=== PATIENT | male | born 1955 | race Caucasian/White ===

== ENCOUNTER 2016-08-11 18:19 | Inpatient (IN) | payer OTHER ==
[~2016-08-11] VITALS: Ht 170.2 cm; Wt 104.9 kg
--- NOTE | 2016-08-11 19:52 | DIAGNOSTIC IMAGING REPORT ---
PROCEDURE: CT HEAD WITHOUT CONTRAST INDICATION: Ground level fall injury, initial encounter TECHNIQUE: Noncontrast axial images with sagittal and coronal reformations. COMPARISON: None. FINDINGS: Mild cortical atrophy and minor white matter chronic ischemic changes. Normal ventricular system. No evidence of acute intracranial process. Visualized mastoids and sinuses are clear. IMPRESSION: 1. No acute intracranial abnormality 2. Mild atrophy and minor white matter chronic ischemic changes 3. Findings discussed with Dr. Li at 07:53 p.m., [place] Standard Time
--- NOTE | 2016-08-11 19:59 | DIAGNOSTIC IMAGING REPORT ---
PROCEDURE: CT CERVICAL SPINE W/O CONTRAST CLINICAL INDICATION: Ground level fall, initial encounter TECHNIQUE: Noncontrast axial images with sagittal and coronal reformations. COMPARISON: None. FINDINGS: Normal alignment without fracture. Severe degenerative changes. Mild spinal stenosis at the C4-5, C5-6 and C6-7. Paraspinal soft tissues are normal IMPRESSION: 1. No acute changes 2. Severe degenerative changes 3. Results discussed with Dr. Li All CT scans at this facility use dose modulation, iterative reconstruction, and/or weight-based dosing when appropriate to reduce radiation dose to as low as reasonably achievable.
--- NOTE | 2016-08-11 20:23 | DIAGNOSTIC IMAGING REPORT ---
PROCEDURE: XR SHOULDER 2 OR MORE VW-RIGHT INDICATION: TRAUMA/INJURY, initial encounter TECHNIQUE: Three views. COMPARISON: None. FINDINGS: Comminuted fracture of the humeral head with extension to the humeral neck and mild displacement. No dislocation. Moderate AC joint degenerative changes. IMPRESSION: 1. Comminuted right humeral head fracture with mild displacement
--- NOTE | 2016-08-11 20:26 | DIAGNOSTIC IMAGING REPORT ---
PROCEDURE: XR SACRUM AND COCCYX INDICATION: TRAUMA/INJURY, initial encounter TECHNIQUE: Three views. COMPARISON: None. FINDINGS: Osseous structures are normal. No evidence of fracture. IMPRESSION: 1. Normal sacrum and coccyx.
--- NOTE | 2016-08-11 20:29 | DIAGNOSTIC IMAGING REPORT ---
PROCEDURE: XR HAND 3 OR 4 VIEWS - LEFT INDICATION: TRAUMA/INJURY, initial encounter TECHNIQUE: Four views. COMPARISON: None. FINDINGS: Osteopenia. No acute fracture or dislocation. Single screw through the third proximal phalanx. Multiple retention surgical wires overlie the fourth proximal phalanx. DIP degenerative changes. IMPRESSION: 1. No acute changes 2. Old postsurgical changes of the left third and fourth proximal phalanges 3. Severe osteopenia 4. Osteoarthritic changes
--- NOTE | 2016-08-11 22:23 | Progress Note ---
Subjective General Fx right shoulder, liver cirrhosis, ESRD. Admitted for eval and possible TSA. Full report dictated.
--- NOTE | 2016-08-11 22:23 | Progress Note ---
Subjective General Fx right shoulder, liver cirrhosis, ESRD. Admitted for eval and possible TSA. Full report dictated.
--- NOTE | 2016-08-11 23:58 | DIAGNOSTIC IMAGING REPORT ---
PROCEDURE: XR PELVIS 1 OR 2 VIEWS INDICATION: Pain post fall TECHNIQUE: AP view. COMPARISON: None. FINDINGS: Osseous structures are normal. IMPRESSION: 1. Normal pelvis.
--- NOTE | 2016-08-11 23:58 | DIAGNOSTIC IMAGING REPORT ---
PROCEDURE: XR PELVIS 1 OR 2 VIEWS INDICATION: Pain post fall TECHNIQUE: AP view. COMPARISON: None. FINDINGS: Osseous structures are normal. IMPRESSION: 1. Normal pelvis.
--- NOTE | 2016-08-11 23:59 | DIAGNOSTIC IMAGING REPORT ---
PROCEDURE: XR LUMBAR SPINE 2 OR 3 VIEWS INDICATION: Pain post fall TECHNIQUE: Three views. COMPARISON: None. FINDINGS: Mild dextroscoliosis may be in part due to positional changes. There are moderate degenerative changes of the lower lumbar facet joints. There is mild disc space narrowing at L3-4. Osseous structures and disc spaces are normal. No evidence of an acute process or fracture. Findings suggest multiple calcified gallstones. IMPRESSION: 1. Mild to moderate degenerative changes of the lumbar spine. 2. Otherwise negative lumbar spine. 3. Probable gallstones.
--- NOTE | 2016-08-12 00:08 | DIAGNOSTIC IMAGING REPORT ---
PROCEDURE: CT UPPER EXT W/O CONT - RIGHT CLINICAL INDICATION: TRAUMA/INJURY TECHNIQUE: Thin-cut noncontrast axial images with sagittal and coronal reformations. COMPARISON: Compare radiographs of the right shoulder earlier in the day (08/11/1969). FINDINGS: There is a comminuted fracture of the surgical neck of the right humerus with mild splaying of fracture fragments. There is mild ventral angulation and dorsal impaction. There is no evidence of dislocation. There are mild degenerative and/or post-traumatic changes of the right clavicle with mild arthritic change right acromioclavicular joint. There are mild degenerative right glenohumeral joint. IMPRESSION: 1. Mildly impacted and minimally angulated comminuted fracture of the surgical neck of the right humerus. All CT scans at this facility use dose modulation, iterative reconstruction, and/or weight-based dosing when appropriate to reduce radiation dose to as low as reasonably achievable.
--- NOTE | 2016-08-12 00:30 | ED CLINICAL REPORT ---
Clinical Report - Physicians/Mid Levels [facility] [address] [place] [address] 08/11/2016 18:20 Patient: QUYNH FIGUEROA Time Seen: 18:38. Arrived- By private vehicle. Historian- patient. HISTORY OF PRESENT ILLNESS Location of injuries- head, lower back and right shoulder. Chief Complaint: FALL. The injury occurred just prior to arrival. Fell while standing; slipped. Occurred at home. The patient complains of severe pain. The patient sustained a blow to the head. No neck pain or loss of consciousness. REVIEW OF SYSTEMS All systems otherwise negative, except as recorded above. PAST HISTORY PCP - Matthias. Problems: Hearing Loss. Cirrhosis. Medications: Lactulose 10 gm/15 ml bid. Flic acid 1 mg daily. Metronidazole 250 mg tid. Amiloride HCL 10 mg q.a.m., 5 mg noon. Mgnesium oxide 400 mg BID. Furosemide 40 mg a.m., 20 mg pm. Potassium chloride 7.5 daily. None. Allergies: Ibuprofen. SOCIAL HISTORY Alcohol use. Patient is a recovering alcoholic. (last drink 6 years ago). Residence: Near [place] he lives alone. FAMILY HISTORY Heart disease in first-degree relative (sibling). ADDITIONAL NOTES The nursing notes have been reviewed. PHYSICAL EXAM Vital Signs: 08/11/2016 18:31 BP: 132/65. HR: 82. RR: 18. O2 saturation: 94%. Temp: 97.8 F. Pain level now: 8/10. Have been reviewed. Appearance: Patient on a backboard. C-collar in place. Alert. Head: No Ambriz's sign or raccoon eyes. Eyes: Pupils equal, round and reactive to light. EOM intact. ENT: Pharynx normal. Neck: No decreased ROM or muscle spasm in the neck. No pain with movement of head/neck. No vertebral tenderness. CVS: Heart sounds normal. Pulses normal. Respiratory: Breath sounds normal. Chest nontender. Abdomen: No visible injury. Soft and nontender. Bowel sounds normal. Back: No tenderness. ROM normal. Skin: Skin intact. Skin warm and dry. Normal skin color. Normal skin turgor. Extremities: (tender to the right humeral head. no crepitus. no corrie abnormalities. slight amount of swelling. appears symmetrical to contralateral side. no overlying skin changes. compartments soft. no AC joint tenderness. No cavicular tenderness. no chest wall tenderness. back and neck are atraumatic and non-tender. no step offs.). Neuro: [place] Coma Scale: 15- eyes open spontaneously (4); best verbal response- oriented x 3 (5); best motor response- obeys commands (6). Oriented X 3. No alteration in mental status. No motor deficit. No sensory deficit. LABS, X-RAYS, AND EKG EKG: No acute ischemia. Normal sinus rhythm. Rate: 80. Normal P waves. Normal SIERRA. Normal QRS complex. Normal axis. T wave flattening in lead V1, V2, V5 and V6. No ST elevation or depression. The study has been interpreted contemporaneously. The study has been independently viewed by me. The EKG appears to be a good tracing. Sacrum X-ray: (IMPRESSION: 1. Normal sacrum and coccyx). The X-rays were interpreted by the radiologist and contemporaneously by me. Lt Hand X-ray: (IMPRESSION: 1. No acute changes 2. Old postsurgical changes of the left third and fourth proximal phalanges 3. Severe osteopenia 4. Osteoarthritic changes). The X-rays were interpreted by the radiologist and contemporaneously by me. CT C-Spine: (IMPRESSION: 1. No acute changes 2. Severe degenerative changes). The study was interpreted contemporaneously by me and discussed with the radiologist. CT Head: (IMPRESSION: 1. No acute intracranial abnormality 2. Mild atrophy and minor white matter chronic ischemic changes). The study was interpreted contemporaneously by me and discussed with the radiologist. PROGRESS AND PROCEDURES Course of Care: 21:39 08/11/16. the case was discussed with Dr. Lerner at change of shift. We reviewed the patient's history and examination findings as well as the results of his imaging studies. He will await Dr. Escalante's arrival and orthopedic evaluation of the patient and will follow up on the results of the patient's pending lab work. - JODIE The patietn is 60 yo male. with shoulder injury. plan was to follow up on ortho consult. Ortho present. Patient to be admitted. Orders placed. Patient continues to be neurovascularly intact. NO neurovascular compromise. Patient stable for the floor. Do not need ICU level of care. Discussed with patient work up, diagnosis, and plan of care. All questions answered. Patient expressed understanding of these instructions and was agreeable to them. Patient is stable. Consult obtained from orthopedics. Dr. Escalante. Patient/family counseled. Disposition: Observation in Acute Care. CLINICAL IMPRESSION Fracture of the proximal, greater tuberosity of the right humerus (comminuted). Fall. right humeral head fracture closed acute, initial visit. (Electronically signed by Bar Lerner Dr. 08/18/2016 21:30)
--- NOTE | 2016-08-12 00:30 | ED ORDER SUMMARY ---
..... Patient: QUYNH FIGUEROA OrderSheet [facility] VisitID: [id number] [place], [place] [id number] 60y, M Registration Date/Time: 08/11/2016 ORDER SHEET Weight: 110.6 kg (stated) Allergies: Ibuprofen GENERAL ORDERS: CT Head wo Cont Urgent (19:12 08/11/2016 Yolanda DANIELS) (Ack 19:23 [facility] ER Tech1) (19:40 MCampbell) Shoulder 2V or more Right Urgent (19:13 08/11/2016 Yolanda DANIELS) (Ack 19:23 [facility] ER TechJeff) (20:11 [facility] ER Tech1) Hand 3 or 4V Left Urgent (19:13 08/11/2016 Yolanda DANIELS) (Ack 19:23 [facility] ER TechJeff) (20:11 [facility] ER Tech1) CT Cervical Spine wo Cont Urgent (19:13 08/11/2016 Yolanda DANIELS) (Ack 19:23 [employer] ER TechJeff) (19:40 MCampbell) Sacrum and Coccyx Urgent (19:14 08/11/2016 Yolanda DANIELS) (Ack 19:23 [facility] ER TechJeff) (20:11 [facility] ER Tech1) CT Upp Ext wo Cont Right (Humerus) Urgent (21:23 08/11/2016 Yolanda DANIELS) (Ack 21:25 [employer] [facility] ER TechJeff) (23:48 RCollier R.N.) CBC w Diff Urgent (21:25 08/11/2016 Yolanda DANIELS) (Ack 21:25 [facility] ER TechJeff) (21:38 SRoberts R.N.) CMP Urgent (21:25 08/11/2016 Yolanda DANIELS) (Ack 21:25 [facility] ER TechJeff) (21:38 SRoberts R.N.) Amylase Urgent (21:25 08/11/2016 Yolanda DANIELS) (Ack 21:25 [employer] ER TechJeff) (21:38 SRoberts R.N.) Lipase Urgent (21:25 08/11/2016 Yolanda DANIELS) (Ack 21:25 [employer] ER TechJeff) (21:38 SRoberts R.N.) EKG - ER Stat (22:21 08/11/2016 Yolanda DANIELS) (Ack 22:37 AMcQuoid ER Tech1) (22:49 RCollier R.N.) PT with INR Urgent (22:22 08/11/2016 Yolanda DANIELS) (22:32 [facility]ouse ER Tech1) PTT Urgent (22:22 08/11/2016 Yolanda DANIELS) (22:32 [facility] ER Tech1) Sling - arm (01:08/12/2016 Jessica Bone) (1:39 Magdalena R.N.) MEDICATION ORDERS: IV FLUIDS: IV NS : initial bolus 500 mL (1000 mL/hr), then 125 mL/hr for 4h (NOW); Urgent (21:24 08/11/2016 Yolanda DANIELS) (Ack 21:38 SRoberts R.N.) (22:00 SRoberts R.N.) Dilaudid IV 0.5 mg (NOW) (21:25 08/11/2016 Yolanda DANIELS) (Ack 21:38 SRoberts R.N.) (22:01 SRoberts R.N.) Zofran IV 4 mg (NOW) (21:25 08/11/2016 Yolanda DANIELS) (Ack 21:38 SRoberts R.N.) (22:00 SRoberts R.N.) Dilaudid IV 0.5 mg (HIGH ALERT MEDICATION, NOW) (01:32 08/12/2016 Jessica Bone) (Ack 1:33 RCollier R.N.) (1:38 RCollier R.N.) ORDER SHEET NOTES: [Electronically signed by Suze Dahl R.N. (02:35 08/12/2016)] [Electronically signed by Bar Lerner Dr. (21:30 08/18/2016)] [Electronically locked/signed by Suze Dahl R.N. (02:35 08/12/2016)]
--- NOTE | 2016-08-12 00:30 | ED ORDER SUMMARY ---
..... Patient: QUYNH FIGUEROA OrderSheet [facility] VisitID: [id number] [place], [place] [id number] 60y, M Registration Date/Time: 08/11/2016 ORDER SHEET Weight: 110.6 kg (stated) Allergies: Ibuprofen GENERAL ORDERS: CT Head wo Cont Urgent (19:12 08/11/2016 Yolanda DANIELS) (Ack 19:23 [employer] [place] ER Tech1) (19:40 MCampbell) Shoulder 2V or more Right Urgent (19:13 08/11/2016 Yolanda DANIELS) (Ack 19:23 [employer] [place] ER TechJeff) (20:11 [employer] [place] ER Tech1) Hand 3 or 4V Left Urgent (19:13 08/11/2016 Yolanda DANIELS) (Ack 19:23 [employer] ER TechJeff) (20:11 [facility] [place] ER Tech1) CT Cervical Spine wo Cont Urgent (19:13 08/11/2016 Yolanda DANIELS) (Ack 19:23 [employer] ER TechJeff) (19:40 MCampbell) Sacrum and Coccyx Urgent (19:14 08/11/2016 Yolanda DANIELS) (Ack 19:23 [employer] [facility] ER TechJeff) (20:11 [facility] [place] ER Tech1) CT Upp Ext wo Cont Right (Humerus) Urgent (21:23 08/11/2016 Yolanda DANIELS) (Ack 21:25 [employer] ER TechJeff) (23:48 RCollier R.N.) CBC w Diff Urgent (21:25 08/11/2016 Yolanda DANIELS) (Ack 21:25 [employer] [place] ER TechJeff) (21:38 SRoberts R.N.) CMP Urgent (21:25 08/11/2016 Yolanda DANIELS) (Ack 21:25 [employer] ER TechJeff) (21:38 SRoberts R.N.) Amylase Urgent (21:25 08/11/2016 Yolanda DANIELS) (Ack 21:25 [employer] ER TechJeff) (21:38 SRoberts R.N.) Lipase Urgent (21:25 08/11/2016 Yolanda DANIELS) (Ack 21:25 [employer] ER TechJeff) (21:38 SRoberts R.N.) EKG - ER Stat (22:21 08/11/2016 Yolanda DANIELS) (Ack 22:37 AMcQuoid ER Tech1) (22:49 RCollier R.N.) PT with INR Urgent (22:22 08/11/2016 Yolanda DANIELS) (22:32 [facility]ouse ER Tech1) PTT Urgent (22:22 08/11/2016 Yolanda DANIELS) (22:32 [facility] ER Tech1) Sling - arm (01:08/12/2016 Jessica Bone) (1:39 Magdalena R.N.) MEDICATION ORDERS: IV FLUIDS: IV NS : initial bolus 500 mL (1000 mL/hr), then 125 mL/hr for 4h (NOW); Urgent (21:24 08/11/2016 Yolanda DANIELS) (Ack 21:38 SRoberts R.N.) (22:00 SRoberts R.N.) Dilaudid IV 0.5 mg (NOW) (21:25 08/11/2016 Yolanda DANIELS) (Ack 21:38 SRoberts R.N.) (22:01 SRoberts R.N.) Zofran IV 4 mg (NOW) (21:25 08/11/2016 Yolanda DANIELS) (Ack 21:38 SRoberts R.N.) (22:00 SRoberts R.N.) Dilaudid IV 0.5 mg (HIGH ALERT MEDICATION, NOW) (01:32 08/12/2016 Jessica Bone) (Ack 1:33 RCollier R.N.) (1:38 RCollier R.N.) ORDER SHEET NOTES: [Electronically signed by Suze Dahl R.N. (02:35 08/12/2016)] [Electronically signed by Bar Lerner Dr. (21:30 08/18/2016)] [Electronically locked/signed by Suze Dahl R.N. (02:35 08/12/2016)]
--- NOTE | 2016-08-12 00:30 | ED NURSING NOTES ---
Clinical Report - Nurses [place] [address] [place] [address] 08/11/2016 18:20 Patient: QUYNH FIGUEROA TRIAGE Triage time 18:20. Acuity: LEVEL 3. Chief Complaint: FALL while walking, onto a concrete surface and landed on their head (Pt was walking at home, slipped on the concrete and fell landing on his shoulder, elbow and head. Now with low back pain, R shoulder/elbow pain). Alert. AMNA COMA SCORE: [place] Coma Scale: 15- eyes open spontaneously (4); best verbal response- oriented x 4 (5); best motor response- obeys commands (6). --18:40 Ritika Branch R.N. 18:31 08/11/16. BP: 132/65. HR: 82. RR: 18. O2 saturation: 94%. Temp: 97.8 F. Pain level now: 03/03. --18:40 Ritika Branch R.N. Weight: 110.6 kg stated. Height/Length: 67 inches. BMI: 38.2. --18:31 Ritika Branch R.N. Medications None. --18:32 Ritika Branch R.N. Potassium chloride 7.5 daily. --18:35 Ritika Branch R.N. Furosemide 40 mg a.m., 20 mg pm. --18:36 Ritika Branch R.N. Mgnesium oxide 400 mg BID. --18:36 Ritika Branch R.N. Amiloride HCL 10 mg q.a.m., 5 mg noon. --18:36 Ritika Branch R.N. Metronidazole 250 mg tid. --18:36 Ritika Branch R.N. Flic acid 1 mg daily. --18:36 Ritika Branch R.N. Lactulose 10 gm/15 ml bid. --18:37 Ritika Branch R.N. Allergies Ibuprofen. --18:32 Ritika Branch R.N. History Arrived by EMS. Historian: patient. Primary physician (jhoana). Location of injuries: lower back, mid-back, right shoulder and right elbow. This occurred just prior to arrival. Occurred at home. He has had back pain. ( right shoulder, right elbow). 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 Trauma activation: Pre-hospital notification of patient arrival was received. SOCIAL HX: No alcohol use or drug use. No infectious disease exposure. NUTRITIONAL RISK ASSESSMENT: The nutritional risk assessment revealed no deficiencies. FUNCTIONAL ASSESSMENT: Functional assessment: no impairments noted. LEARNING NEEDS ASSESSMENT: The learning needs assessment revealed no barriers. SKIN INTEGRITY ASSESSMENT: Skin integrity risk assessment completed. No skin integrity risk identified. --18:40 Ritika Branch R.N. PROBLEMS: Cirrhosis. --18:35 Ritika Branch R.N. Interventions ID band on patient. To treatment room. --18:40 Ritika Branch R.N. PHYSICAL ASSESSMENT To room via stretcher. Patient gowned. GENERAL / NEURO / PSYCH: Alert. Oriented X 4. Appears in no acute distress. RESPIRATORY: Respirations not labored. CVS: Pulses within normal limits. Capillary refill less than 2 seconds. GI / : Abdomen nontender. EXTREMITIES: Limited ROM present. SKIN: Skin intact. Skin is warm and dry. --22:34 Vero Juarez R.N. NURSING PROGRESS NOTES C-collar applied (applied by ems). Patient placed on backboard (applied by ems). Neuro-vascular extremity check. Patient gowned. Reassurance given. Two patient identifiers checked. Call light placed in reach. Side rails up x 2. Bed placed in lowest position. Patient ready for evaluation. ED physician notified. Patient waiting for evaluation. --18:42 Ritika Branch R.N. ( Dr Li evaled and removed the patient from the backboard. C-Collar remains in place.). --18:58 Vero Juarez R.N. Patient transported to radiology by stretcher with tech. (1940). --19:57 Vero Juarez R.N. Patient returned from radiology by stretcher with tech. --20:11 Vero Juarez R.N. 21:38 08/11/2016 Site #1 started via IV in the left antecubital space with an 20g angiocath, with aseptic technique and good blood return; one attempt. Blood drawn: rainbow set. Labeled in the presence of the patient and sent to the lab. Saline lock flushed with 10 mL saline. --21:38 Vero Juarez R.N. 21:54 08/11/2016 Zofran (Ondansetron HCl) IVP 4 mg given over 1 minute(s) via site #1. Allergies verified and confirmed 5 rights. IV patency established. IV site checked: no pain, redness, or swelling. IV flushed thoroughly pre- and post-medication administration. IVP given by RN. --22:00 Vero Juarez R.N. 21:55 08/11/2016 Dilaudid (HYDROmorphone HCl PF) IVP 0.5 mg given. via site #1. Allergies verified, confirmed 5 rights and sedative warning given to the patient. IV patency established. IV site checked: no pain, redness, or swelling. IV flushed thoroughly pre- and post-medication administration. IVP given by RN. --22:01 Vero Juarez R.N. 22:00 08/11/2016 Started bag #1 1000 mL IV Fluids IV NS (Saline); bolus of 500 mL over 30 minute(s) then at 125 mL/hr over 4 hour(s) via site #1 via IV pump. Allergies verified and confirmed 5 rights. IV patency established. IV site checked: no pain, redness, or swelling. IV flushed thoroughly pre- and post-medication administration. --22:00 Vero Juarez R.N. 22:08/11/16. BP: 118/67. HR: 76. RR: 20. O2 saturation: 100% on room air. Pain level now: 01/01. 21:02 08/11/16. BP: 119/66. HR: 69. RR: 18. O2 saturation: 100%. Pain level now: 11/01. 18:31 08/11/16. BP: 132/65. HR: 82. RR: 18. O2 saturation: 94%. Temp: 97.8 F. Pain level now: 03/03. --22:03 Vero Juarez R.N. Care transferred and report received. --22:33 Suze Dahl R.N. 22:30 08/11/2016 IV Fluids IV NS via IV site #1 Rate Changed: bag #1 decreased to 125 mL/hr via IV pump. IV patency established. IV site checked: no pain, redness, or swelling. IV flushed thoroughly. Confirmed 5 Rights. --22:49 Suze Dahl R.N. EKG time: (2247 PM). EKG was ordered, performed by a tech and shown to the ED physician. --22:55 Michelle Driver 23:15. Patient transported to CT by stretcher with tech. --23:20 Suze Dahl R.N. 23:47. Patient returned from CT by stretcher with tech. --23:48 Suze Dahl R.N. 00:55 08/12/16. BP: 110/63. HR: 80. RR: 15. O2 saturation: 96% on room air. [place] pain scale: 6/10. --00:59 Suze Dahl R.N. ( pt given diet sprite and 1/2 sandwich per pt request and verbal ok from EDMD). --01:06 Suze Dahl R.N. 01:35 08/12/2016 Dilaudid (HYDROmorphone HCl PF) IVP 0.5 mg given over 1 minute(s) via site #1. Allergies verified, confirmed 5 rights and sedative warning given to the patient. IV patency established. IV site checked: no pain, redness, or swelling. IV flushed thoroughly pre- and post-medication administration. IVP given by RN. --01:38 Suze Dahl R.N. DISPOSITION / DISCHARGE Disposition: observation in Acute Care. Report was given to a nurse via a phone call. Report included patient's care, treatment, medications, reviewed medication reconcilliation, and condition (including any recent changes or anticipated changes). All questions were answered. Report was acknowledged. Patient's personal items include: wallet and cell phone, clothing,; items were placed in belongings bag and transported with the patient. Collection of belongings was witnessed by 1 nurse. --01:32 Suze Dahl R.N. 01:33 08/12/2016 IV Fluids IV NS Discontinued: bag #1 completed. Total amount infused: 1000 mL. IV patency established. IV site checked: no pain, redness, or swelling. IV flushed thoroughly. --01:33 Suze Dahl R.N. Departure time: 01:39. Transported via stretcher by nurse with IV. --01:39 Suze Dahl R.N. ( pt left prior to sling order being placed, ACRN will place upon arrival to floor.). --01:40 Suze Dahl R.N. 01:40 08/12/2016 Site #[address] upon admission. Flushed with 10 mL saline. --02:35 Suze Dahl R.N. Locked/Released at 08/12/2016 2:35 by Suze Dahl R.N.
--- NOTE | 2016-08-12 02:01 | CONSULTATION REPORT ---
DATE OF CONSULTATION: 08/11/2016 CHIEF COMPLAINT: 1. Right shoulder pain HISTORY OF PRESENT ILLNESS: The patient had a fall today, says he is just a little unsteady on his feet and every once in a while he will fall down and unfortunately, he suffered a fall today. Denies any loss of consciousness or seizure, but suffered a fall and, with that, fractured his proximal right humerus and was brought to the emergency department where x-rays confirmed the presence of the fracture and he is being admitted for care of the same and also for humanitarian reasons as the patient lives by himself and has significant other problems where he is disabled and will be unable to care for himself for the foreseeable future. MEDICAL/SURGICAL HISTORY: Past history: Remarkable that he has long history of alcoholism, has chronic liver cirrhosis and borderline kidney function. Says he has never been on dialysis, but he has end-stage renal disease. He said he was also told in the past he had gallstones, although has not had any surgery for it. He has had cataracts in both eyes and had those removed. He denies previous NC, CVA, hypertension, peptic ulcer disease, AIDS, cancer, tumor, tuberculosis or other serious medical illness. Denies any other previous surgery, although he has had upper and lower GI studies and he said he did have some GI bleeding at one point, which so far as he knows, has not resolved it. MEDICATIONS: 1. Lasix 40 mg in the morning and 20 mg at noon. 2. Potassium supplement, potassium chloride 20 mEq, and he takes half a pill twice a day. 3. Magnesium oxide 400 mg twice a day. 4. Amelioride 5 mg, 2 in the morning and 1 at noon. 5. Folic acid 1 mg a day. 6. Lactulose. When he takes it, he takes 20 g twice a day. 7. Metronidazole, he said, for years, and he takes 250 mg 3 times a day, but he is not sure why he is taking that. ALLERGIES: 1. HE IS ALLERGIC TO IBUPROFEN. SOCIAL HISTORY: FAMILY HISTORY: Negative for any anesthesia or bleeding problems and said he has not had any anesthesia or bleeding problems himself. Does have a brother, he says, is borderline diabetic, but otherwise, his family history is negative. REVIEW OF SYSTEMS: Positive in that he does have poor balance and says he does get a little lightheaded when he stands up quickly and just is a little shaky on his feet, even under the best of circumstances, but he denies any recent visual changes and he said that the cataract surgery did help his vision, although it is not perfect. 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 He said he did pass out at one- time, but it has been years ago, and he denies any seizure disorder. Cardiorespiratory: He has not had chest pain or shortness of breath and denies any previous myocardial infarction. Gastrointestinal: He has not got any nausea, vomiting, or diarrhea. Says typically he is constipated and he takes some lactulose to help lower his ammonia level, as well as to ease the constipation. If he takes that consistently well then he gets diarrhea, but if he just takes it occasionally he is good. Genitourinary: From standpoint, says he gets up at night to urinate and with the diuretic that he is taking needs to urinate a lot, but does not have any dysuria and has not had any hematuria. Musculoskeletal: He has got some chronic low back pain, says that is made a little worse after his fall and he has some pain in the hips as well from his fall, but primarily has pain in the right shoulder from the fall and which is new today. PHYSICAL EXAMINATION: HEENT: Shows the head to be normocephalic and atraumatic. Eyes are clear. He has a little bit of a lid lag on the right side. Face is symmetrical. Mouth and posterior oropharynx are clear. He has his lower mandibular teeth, yet they are in fair repair. He has a maxillary plate in place and has no maxillary teeth. His ears show no drainage from the ear canals, but he does have significant hearing deficit in both ears. NECK: Without jugular venous distention. CHEST: Symmetrical. ABDOMEN: Moderately obese. BACK: The spine is without palpable deformity. He does have some mild tenderness in the lower lumbar and sacral area of the spine over the SI joint. EXTREMITIES: He does have some mild discomfort with hip rotation on the right and none on the left. He has active dorsiflexion, plantarflexion of the feet on both sides and light touch sensation present distally. In the right upper extremity there is no ecchymosis, no open wounds, no erythema and just mild edema at the shoulder. More distally, he has 1+ pulse. Fingers are warm and pink. He does have light touch sensation present throughout, including lateral aspect of the shoulder and more distally in the radial, median , and ulnar nerve distributions. LAB/IMAGING: X-rays: Show him to have a very comminuted fracture, which looks to involve head split and probably some comminution of the head fragment and to include the comminuted greater tuberosity fracture as well. IMPRESSION: 1. Liver cirrhosis. 2. End-stage renal disease. 3. Right shoulder fracture. PLAN: Will be for admission. He would probably best served by having a shoulder replacement. We will get the hospitalist to see him and see whether they think that he could be safely cleared for surgery and undergo the operation, which is a question shukri at this time.
[2016-08-12 02:15] VITALS: BP 110/55
[2016-08-12] MEDS ORDERED: POTASSIUM CHLO10 ME2 PO (03:02)
[2016-08-12] MEDS ORDERED: FUROSEMIDE20 MG PO (03:03)
[2016-08-12] MEDS ORDERED: MAG-OX 400400 MG PO (03:04)
[2016-08-12] MEDS ORDERED: AMILORIDE HCL5 MG PO ×2 (03:05→03:06)
[2016-08-12] MEDS ORDERED: FLAGYL500 MG PO (03:07)
[2016-08-12] MEDS ORDERED: FOLIC ACID1 MG PO (03:08)
[2016-08-12] MEDS ORDERED: LACTULOSE PO (03:10)
[2016-08-12 06:53] VITALS: BP 122/65
--- NOTE | 2016-08-12 09:13 | Progress Note ---
Subjective General VSS Afebrile FBS 141 He's declined blood sugar checks and wants to go home. 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 The pain is controlled with meds and he would like to f/u with his PCP Dr. Rizzo. His Ct shows a very comminuted fracture of the proximal humerus, but the position is not unreasonable, faby in light of his other medical problems and the high risk of complications if he has surgery. I've explained this to him as well as the possibility he may need surgery later and he is satisfied not to have any surgery at this time. Plan: LEXIE walker am.
--- NOTE | 2016-08-12 09:13 | Progress Note ---
Subjective General VSS Afebrile FBS 141 He's declined blood sugar checks and wants to go home. 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 The pain is controlled with meds and he would like to f/u with his PCP Dr. Rizzo. His Ct shows a very comminuted fracture of the proximal humerus, but the position is not unreasonable, faby in light of his other medical problems and the high risk of complications if he has surgery. I've explained this to him as well as the possibility he may need surgery later and he is satisfied not to have any surgery at this time. Plan: LEXIE walker am.
[2016-08-12] MEDS ORDERED: OXAYDO5 MG PO (09:19)
--- NOTE | 2016-08-12 09:21 | Provider's Discharge Care Plan ---
Problem, Goal, Plan Problem List 1. Fracture of right shoulder
--- NOTE | 2016-08-12 09:21 | Provider's Discharge Care Plan ---
Problem, Goal, Plan Problem List 1. Fracture of right shoulder
[2016-08-12 10:43] VITALS: BP 121/73
--- NOTE | 2016-08-18 21:31 | ED MED RECONCILIATION SUMMARY ---
Patient: QUYNH FIGUEROA Medication Reconciliation Report [facility] VisitID: [id number] [address] [place] [address] 60y, M Registration Date/Time: 08/11/2016 Weight: 110.6 kg Height/Length: 67 in. BMI: 38.2 ALLERGIES: Ibuprofen The patient's Home Medications are listed below: THE FOLLOWING MEDICATIONS NEED TO BE RECONCILED: Amiloride HCL 10 mg q.a.m., 5 mg noon Flic acid 1 mg daily Furosemide 40 mg a.m., 20 mg pm Lactulose 10 gm/15 ml bid Metronidazole 250 mg tid Mgnesium oxide 400 mg BID Potassium chloride 7.5 daily The source(s) of the original Home Medication information: Not obtained. The following Medications were given to the patient in the Emergency Department: IV NS IV Fluids bolus 500 mL over 30 minute(s), then 125 mL/hr, administered: 08/11/2016 10:00:00 PM Zofran [IVP] IVP 4 mg, administered: 08/11/2016 9:54:00 PM Dilaudid [IVP] IVP 0.5 mg, administered: 08/11/2016 9:55:00 PM Dilaudid [IVP] IVP 0.5 mg, administered: 08/12/2016 1:35:00 AM The following Medications were prescribed to the patient: None.
--- NOTE | 2016-08-18 21:31 | ED MAR SUMMARY ---
..... Medication Administration Record [facility] [address] [place] [address] Patient: QUYNH FIGUEROA Visit ID: [id number] 60y, M Weight: 110.6 kg Height/Length: 67 in BMI: 38.2 ALLERGIES: Ibuprofen Given 21:54 08/11/2016 Vero Juarez R.N. Medication Administered: ZOFRAN [IVP] (ONDANSETRON HCL), Dose: 4 mg IVP over 1 minute(s), Site: #1 left AC. Medication Ordered: Zofran IV 4 mg (NOW). Given 21:55 08/11/2016 Vero Juarez R.N. Medication Administered: DILAUDID [IVP] (HYDROMORPHONE HCL PF), Dose: 0.5 mg IVP, Site: #1 left AC. Medication Ordered: Dilaudid IV 0.5 mg (NOW). Start 22:00 08/11/2016 Vero Juarez R.N., Stop 01:33 08/12/2016 Suze Dahl R.N. Medication Administered: IV NS (SALINE), Dose: IV Fluids over 4 hour(s), Rate: 125 mL/hr, Bolus: 500 mL over 30 minute(s), Dispensed: 1000 mL bag, Site: #1 left AC. Medication Ordered: IV NS : initial bolus 500 mL (1000 mL/hr), then 125 mL/hr for 4h (NOW); Urgent. Given 01:35 08/12/2016 Suze Dhal RIggyNIggy Medication Administered: DILAUDID [IVP] (HYDROMORPHONE HCL PF), Dose: 0.5 mg IVP over 1 minute(s), Site: #1 left AC. Medication Ordered: Dilaudid IV 0.5 mg (HIGH ALERT MEDICATION, NOW).
--- NOTE | 2016-08-18 21:31 | ED DISCHARGE INSTRUCTIONS ---
Patient: QUYNH FIGUEROA Uriel General Instructions [facility] VisitID: [id number] [address] [place] [address] 60y, M Registration Date/Time: 08/11/2016 Fracture of the proximal, greater tuberosity of the right humerus (comminuted). Fall. right humeral head fracture closed acute, initial visit. (Electronically signed by Bar Lerner Dr. 08/18/2016 21:30)
--- NOTE | 2016-08-18 21:31 | ED MED RECONCILIATION SUMMARY ---
Patient: QUYNH FIGUEROA Medication Reconciliation Report [facility] VisitID: [id number] [address] [place] [address] 60y, M Registration Date/Time: 08/11/2016 Weight: 110.6 kg Height/Length: 67 in. BMI: 38.2 ALLERGIES: Ibuprofen The patient's Home Medications are listed below: THE FOLLOWING MEDICATIONS NEED TO BE RECONCILED: Amiloride HCL 10 mg q.a.m., 5 mg noon Flic acid 1 mg daily Furosemide 40 mg a.m., 20 mg pm Lactulose 10 gm/15 ml bid Metronidazole 250 mg tid Mgnesium oxide 400 mg BID Potassium chloride 7.5 daily The source(s) of the original Home Medication information: Not obtained. The following Medications were given to the patient in the Emergency Department: IV NS IV Fluids bolus 500 mL over 30 minute(s), then 125 mL/hr, administered: 08/11/2016 10:00:00 PM Zofran [IVP] IVP 4 mg, administered: 08/11/2016 9:54:00 PM Dilaudid [IVP] IVP 0.5 mg, administered: 08/11/2016 9:55:00 PM Dilaudid [IVP] IVP 0.5 mg, administered: 08/12/2016 1:35:00 AM The following Medications were prescribed to the patient: None.
--- NOTE | 2016-08-18 21:31 | ED DISCHARGE INSTRUCTIONS ---
Patient: QUYNH FIGUEROA Uriel General Instructions [facility] VisitID: [id number] [address] [place] [address] 60y, M Registration Date/Time: 08/11/2016 Fracture of the proximal, greater tuberosity of the right humerus (comminuted). Fall. right humeral head fracture closed acute, initial visit. (Electronically signed by Bar Lerner Dr. 08/18/2016 21:30)
--- NOTE | 2016-08-18 21:31 | ED MAR SUMMARY ---
..... Medication Administration Record [facility] [address] [place] [address] Patient: QUYNH FIGUEROA Visit ID: [id number] 60y, M Weight: 110.6 kg Height/Length: 67 in BMI: 38.2 ALLERGIES: Ibuprofen Given 21:54 08/11/2016 Vero Juarez R.N. Medication Administered: ZOFRAN [IVP] (ONDANSETRON HCL), Dose: 4 mg IVP over 1 minute(s), Site: #1 left AC. Medication Ordered: Zofran IV 4 mg (NOW). Given 21:55 08/11/2016 Vero Juarez R.N. Medication Administered: DILAUDID [IVP] (HYDROMORPHONE HCL PF), Dose: 0.5 mg IVP, Site: #1 left AC. Medication Ordered: Dilaudid IV 0.5 mg (NOW). Start 22:00 08/11/2016 Vero Juarez R.N., Stop 01:33 08/12/2016 Suze Dahl R.N. Medication Administered: IV NS (SALINE), Dose: IV Fluids over 4 hour(s), Rate: 125 mL/hr, Bolus: 500 mL over 30 minute(s), Dispensed: 1000 mL bag, Site: #1 left AC. Medication Ordered: IV NS : initial bolus 500 mL (1000 mL/hr), then 125 mL/hr for 4h (NOW); Urgent. Given 01:35 08/12/2016 Suze Dahl RIggyNIggy Medication Administered: DILAUDID [IVP] (HYDROMORPHONE HCL PF), Dose: 0.5 mg IVP over 1 minute(s), Site: #1 left AC. Medication Ordered: Dilaudid IV 0.5 mg (HIGH ALERT MEDICATION, NOW).
== END 2016-08-12 14:22 | disposition home or self-care (01) | DRG 562 ==
LOC: ED SRH 18:19 → ACUTE2 SRH 22:36 → TRANS SRH 22:36 → ED SRH 08-12 00:38 → TRANS SRH 08-12 01:52 → ACUTE2 SRH 08-12 01:52
PROVIDERS: ADMIT Orthopaedic Surgery
DX: S42.251A Displaced fracture of greater tuberosity of right humerus, initial encounter for closed fracture (principal); S42.291A Other displaced fracture of upper end of right humerus, initial encounter for closed fracture; S09.90XA Unspecified injury of head, initial encounter; W01.0XXA Fall on same level from slipping, tripping and stumbling without subsequent striking against object, initial encounter; N18.6 End stage renal disease; K70.30 Alcoholic cirrhosis of liver without ascites; F10.20 Alcohol dependence, uncomplicated; Y92.007 Garden or yard of unspecified non-institutional (private) residence as the place of occurrence of the external cause; Y93.01 Activity, walking, marching and hiking; Y99.8 Other external cause status